=== PATIENT | female | born 1965 | race Caucasian/White ===

== ENCOUNTER 2019-07-30 09:52 | Day surgery (SDC) | payer BC ==
[~2019-07-30] VITALS: Ht 160 cm; Wt 105.6 kg
[2019-07-30] MEDS ORDERED: CELECOXIB200 MG PO (10:05)
[2019-07-30] MEDS ORDERED: ERGO50000 PO (10:06)
--- NOTE | 2019-07-30 11:30 | NUR ---
07/30/19 1130 Aime Taylor A SMALL PLANTAR WART NOTED ON BOTTOM ON RIGHT FOOT AND SMALL BRUISE NOTED ON TOP OF RIGHT FOOT DURING PREP.
--- NOTE | 2019-07-30 12:40 | NUR ---
07/30/19 0870 Junior Padilla GAVE REPORT TO RICHA BIRD AND SHE TOOK OVER PATIENT'S CARE.
== END 2019-07-30 13:20 | disposition home or self-care (01) ==
LOC: ORSCSDS 09:52
PROVIDERS: Orthopaedic Surgery
PROC: 0SBC4ZZ Excision of Right Knee Joint, Percutaneous Endoscopic Approach (ICD-10-PCS; principal; 2019-07-30 11:15)
DX: S83.241A Other tear of medial meniscus, current injury, right knee, initial encounter (principal); M17.11 Unilateral primary osteoarthritis, right knee; E78.5 Hyperlipidemia, unspecified; E66.01 Morbid (severe) obesity due to excess calories; Z68.41 Body mass index [BMI] 40.0-44.9, adult; Z79.899 Other long term (current) drug therapy
CPT/HCPCS: A9270-GY; J0171; J0690; J2405; J2704; J3010; J7120

== ENCOUNTER → 2021-06-05 | Outpatient (CLI) | payer BC ==
[~2021-06-05] MED LIST: CELECOXIB200 MG PO; ERGO50000 PO
== END | disposition home or self-care (01) ==
LOC: LAB SHORT 17:50 → LAB 17:50
DX: R30.0 Dysuria (principal)
CPT/HCPCS: 87086

== ENCOUNTER 2024-10-30 06:07 | Day surgery (SDC) | payer BC ==
[~2024-10-30] VITALS: Ht 160 cm; Wt 92.7 kg
[2024-10-30] MEDS ORDERED: CeFAZolin Sodium 2,000 MG VIAL ONE (06:21)
[2024-10-30] MEDS ORDERED: Tranexamic Acid 100 ML IV ONE (06:23)
[2024-10-30] MEDS ORDERED: METF500 PO (06:31)
[2024-10-30] MEDS ORDERED: MOUNJARO15 MG/0.5 SQ (06:33)
[2024-10-30] MEDS ORDERED: OMEP20ER PO (06:33)
[2024-10-30] MEDS ORDERED: FISH OIL 1,0001 EA10 PO (06:34)
[2024-10-30] MEDS ORDERED: Lactated Ringer's 1,000 ML IV ONE (06:40)
[2024-10-30] MEDS ORDERED: propofoL 20 ML IV ONE (06:56)
[2024-10-30] MEDS ORDERED: FentaNYL Citrate 50 MCG/ML 2 ML Injection ONE (06:56)
[2024-10-30] MEDS ORDERED: Midazolam HCl 1MG / ML 2ML Vial ONE (06:56)
[2024-10-30] MEDS ORDERED: Lidocaine 1%-Epineph 1:100000 20 ML MDV ONE (07:06)
[2024-10-30] MEDS ORDERED: Ondansetron HCl 2 MG / ML 2ML Vial ONE (07:40)
[2024-10-30] MEDS ORDERED: Sugammadex Sodium 200 MG/2ML SDV (100 MG/ML) ONE (07:40)
[2024-10-30] MEDS ORDERED: Ketorolac Tromethamine 30mg Vial ONE (07:40)
[2024-10-30] MEDS ORDERED: Dexamethasone Sod Phos 10 MG/ML 1ML VIAL ONE (07:40)
[2024-10-30] MEDS ORDERED: Bupivacaine 0.5% HCl 5 MG/ML 30MLVIAL INJ ONE (07:44)
[2024-10-30] MEDS ORDERED: EPINEPhrine HCl 1 MG/ML 1ML Amp XX ONE (07:44)
--- NOTE | 2024-10-30 07:55 | NUR ---
10/30/24 075Krissy Garcia 30ML OF BUPIVACAINE 0.5% MIXED AND VERIFIED WITH 0.15ML OF EPI (1MG/ML) TO MAKE BUPIVACAINE 0.5% WITH EPI 1:200,000 FOR INJECTION AT [facility].
[2024-10-30 08:25] VITALS: BP 107/60
--- NOTE | 2024-10-30 08:48 | NUR ---
10/30/24 0848 MILAD COLLINS UP IN CHAIR, A&OX4, DENIES NAUSEA/PAIN. TOLERATING CRAN JUICE, AND STRING CHEESE. GLASSES IN PLACE.
[2024-10-30] MEDS ORDERED: EPINEPhrine HCl 1 MG/ML 1ML Amp ONE (11:23)
== END 2024-10-30 09:01 | disposition home or self-care (01) ==
LOC: ORSCSDS 06:07
PROVIDERS: Orthopaedic Surgery Sports Medicine
PROC: 0JBD0ZX Excision of Right Upper Arm Subcutaneous Tissue and Fascia, Open Approach, Diagnostic (ICD-10-PCS; principal; 2024-10-30 07:30)
DX: D17.1 Benign lipomatous neoplasm of skin and subcutaneous tissue of trunk (principal); K21.9 Gastro-esophageal reflux disease without esophagitis; E78.5 Hyperlipidemia, unspecified; E66.9 Obesity, unspecified; Z68.36 Body mass index [BMI] 36.0-36.9, adult
CPT/HCPCS: 82947; 88304; J0171; J0690; J1100; J1885; J2250; J2405; J2704; J3010